=== PATIENT | female | born 1970 | race Caucasian/White ===

== ENCOUNTER 2016-12-28 14:23 | Emergency (ER) | payer MEDICARE ==
[2016-12-28 15:24] LABS: BASO % 0.1 % (0.1-1.2); EOS # 0.1 10_X3_uL (0.0-0.4); EOS % 0.4 % (0.7-5.8); GRAN # 12.4 10_X3_uL (1.6-6.1); GRAN % 80.2 % (34.0-71.1); HEMATOCRIT 35.9 % (34-45); HEMOGLOBIN 12.2 g/dL (11.2-15.7); LYMPH # 2.1 10_X3_uL (1.2-3.7); LYMPH % 13.6 % (19.3-51.7); MEAN CORPUSCULAR HEMOGLOBIN 28.1 pg (27.0-33.0); MEAN CORPUSCULAR VOLUME 82.7 fL (79-95); MEAN PLATELET VOLUME 9.7 fl (7.5-11.5); MONO # 0.9 10_X3_uL (0.2-0.9); MONO % 5.7 % (4.7-12.5); PLATELET COUNT 329 x10_3/uL (182-369); RED BLOOD COUNT 4.34 x10_6/uL (3.9-5.2); RED CELL DISTRIBUTION WIDTH 15.8 % (11.7-14.4); WHITE BLOOD COUNT 15.5 x10_3/uL (4.0-10.0)
[2016-12-28 15:32] LABS: URINE BILIRUBIN NEGATIVE (NEGATIVE); URINE BLOOD TRACE (NEGATIVE); URINE KETONE 1+ (NEGATIVE); URINE LEUKOCYTE ESTERASE NEGATIVE (NEGATIVE); URINE NITRATE NEGATIVE (NEGATIVE); URINE PROTEIN NEGATIVE (NEGATIVE); UROBILINOGEN NORMAL mg/dL (<1.0)
[2016-12-28 15:43] LABS: ALKALINE PHOSPHATASE 85 U/L (50-136); ALT/SGPT 11 U/L (3.5-33.9); AMYLASE 10 U/L (15.62-74.58); AST/SGOT 9 U/L (7.04-26.96); BLOOD UREA NITROGEN 8 mg/dL (7-18); CALCIUM 8.8 mg/dL (8.7-10.7); CARBON DIOXIDE 22 mmol/L (21-32); CREATININE 0.5 mg/dL (0.6-1.3); GLUCOSE,RANDOM 267 mg/dL (70-99); LIPASE 16 U/L (6.75-60.75); SODIUM 134 mmol/L (136-145); TOTAL PROTEIN 7.1 gm/dL (6.4-8.2)
[2016-12-28 15:47] LABS: BILIRUBIN,TOTAL < 0.15 mg/dL (0.0-1.0)
[2016-12-28 15:51] LABS: URINE GLUCOSE (UA) 1000 mg/dL (NORMAL); URINE RBC 0-5 /[HPF] (0-2); URINE SQUAMOUS EPITHELIAL CELL 0-10 /[HPF] (NONE SEEN); URINE WBC 0-5 /[HPF] (0-5)
[2016-12-28 15:52] LABS: URINE BACTERIA TRACE (NONE SEEN); URINE YEAST FEW (NONE SEEN)
== END 2016-12-28 18:46 | disposition home or self-care (01) ==
LOC: ER 14:23
PROVIDERS: General Practice
DX: K57.30 Diverticulosis of large intestine without perforation or abscess without bleeding (principal); N83.209 Unspecified ovarian cyst, unspecified side; E11.65 Type 2 diabetes mellitus with hyperglycemia; R10.84 Generalized abdominal pain; R10.31 Right lower quadrant pain; R10.32 Left lower quadrant pain; R11.0 Nausea
CPT/HCPCS: 36415; 80053; 81001; 81025; 82009; 82150; 83690; 85025; 96361; 96374; 99070; 99284; 99284-25; J7040; Q9967